=== PATIENT | male | born 1960 | race Caucasian/White ===

== ENCOUNTER 2020-02-26 05:23 | Emergency (ER) | payer SELFPAY ==
[~2020-02-26] VITALS: Ht 170.2 cm; Wt 94.9 kg
[2020-02-26] MEDS ORDERED: GNP200CA2 PO (05:27)
[2020-02-26] MEDS ORDERED: ceFAZolin SOD 1 GM in D5W MINI-BAG PLUS 50 ML IV ONE ×2 (06:45→10:00)
[2020-02-26] MEDS ORDERED: LevoFLOXacin IV 750 MG in IV 1 EA IV ONE (06:45)
[2020-02-26] MEDS ORDERED: DOXYCYCLINE HYCLATE 100 MG in D5W MINI-BAG PLUS 100 ML IV ONE (07:00)
[2020-02-26 07:20] LABS: BASO % 0.4 % (0.0-1.0); EOS # 0.1 10^3/uL (0.0-0.5); EOS % 0.7 % (0.0-3.0); HEMATOCRIT 44.5 % (42.0-52.0); HEMOGLOBIN 15.3 g/dl (13.5-17.5); LYMPH # 1.4 10^3/uL (1.5-5.0); LYMPH % 16.7 % (24.0-44.0); MEAN CORPUSCULAR HGB CONC 34.4 g/dl (32.0-36.5); MEAN CORPUSCULAR VOLUME 90.3 fl (80.0-96.0); MONO # 0.4 10^3/uL (0.0-0.8); NEUTROPHILS # 6.3 10^3/uL (1.5-8.5); NEUTROPHILS % 76.2 % (36.0-66.0); PLATELET COUNT, AUTOMATED 208 10^3/uL (150-450); RED BLOOD COUNT 4.93 10^6/uL (4.30-6.10); WHITE BLOOD COUNT 8.2 10^3/uL (4.0-10.0)
--- NOTE | 2020-02-26 07:38 | REPVR ---
PROCEDURE INFORMATION: Exam: XR Right Tibia and Fibula Exam date and time: 02/26/2020 7:04 AM Age: 60 years old Clinical indication: Other: Leg laceration; Additional info: Right lateral leg laceration TECHNIQUE: Imaging protocol: XR Right tibia and fibula. Views: 2 views. COMPARISON: No relevant prior studies available. FINDINGS: Bones/joints: Bones are intact. No acute fracture. No dislocation. Mild degenerative change involving the tibiofemoral joint. Soft tissues: There is soft tissue injury and soft tissue swelling along the lateral aspect of the leg with associated soft tissue air, consistent with laceration. No radiopaque foreign body. Mild vascular calcification. IMPRESSION: 1. Soft tissue injury/laceration lateral lower leg. 2. No acute bony abnormality is identified. Electronically signed by: Silvino Emanuel On 02/26/2020 07:38:30 AM
[2020-02-26 07:42] LABS: BLOOD UREA NITROGEN 18 MG/DL (7-18); CALCIUM LEVEL 8.9 MG/DL (8.8-10.2); CARBON DIOXIDE LEVEL 26 MEQ/L (21-32); CHLORIDE LEVEL 102 MEQ/L (98-107); CREATININE FOR GFR 1.15 MG/DL (0.70-1.30); GLOMERULAR FILTRATION RATE > 60.0 (>49); GLUCOSE, FASTING 100 MG/DL (70-100); POTASSIUM SERUM 4.4 MEQ/L (3.5-5.1); SODIUM LEVEL 134 MEQ/L (136-145)
[2020-02-26] MEDS ORDERED: BUPIVACAINE/EPIN 0.25% 30 ML VIAL XX STA (08:11)
[2020-02-26] MEDS ORDERED: ONDANSETRON 4MG/2ML VIAL IV ONE (09:45)
[2020-02-26] MEDS ORDERED: MORPHINE 4 MG/ML 1ML VIAL/SYRINGE (J2270) IV ONE (09:45)
[2020-02-26] MEDS ORDERED: PERC5TAB12 PO ×2 (10:47→10:48)
[2020-02-26] MEDS ORDERED: KEFL500C17 PO (10:47)
[2020-02-26] MEDS ORDERED: LEVA750T7 PO (10:47)
[2020-02-26 10:48] VITALS: BP 135/65
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
== END 2020-02-26 10:59 | disposition home or self-care (01) ==
LOC: M ED 05:23
DX: S81.811A Laceration without foreign body, right lower leg, initial encounter (principal); W01.118A Fall on same level from slipping, tripping and stumbling with subsequent striking against other sharp object, initial encounter; Y92.828 Other wilderness area as the place of occurrence of the external cause; Y93.69 Activity, other involving other sports and athletics played as a team or group; Y99.9 Unspecified external cause status; F17.200 Nicotine dependence, unspecified, uncomplicated
CPT/HCPCS: 12032; 73590; 80048; 85025; 96365; 96366; 96375; 99284; J0690; J1956; J2270; J2405